=== PATIENT | female | born 1995 | race Hispanic/Latino ===

== ENCOUNTER 2018-04-21 20:29 | Emergency (ER) | payer OTHER ==
[~2018-04-21] VITALS: Ht 165.1 cm; Wt 80.3 kg
[2018-04-21] MEDS ORDERED: TRAMADOL HCL 50 MG TAB PO ONE (21:00)
--- NOTE | 2018-04-21 21:18 | Diagnostic Imaging Report ---
FOOT LEFT COMPLETE Comparison: None Clinical history: Injury of the foot after heavy object fell on it Findings: Nondisplaced fracture of the fifth proximal phalanx diaphysis. Nondisplaced intra-articular fracture of the fifth middle phalanx extending into the PIP joint. Fusion of the fifth middle and distal phalanx. Associated soft tissue swelling. Impression: Nondisplaced fifth phalangeal fractures. Signed by: Dr Crystal Schaefer MD on 04/21/2018 9:15 PM
== END 2018-04-21 22:50 | disposition home or self-care (01) ==
LOC: ER 20:29
DX: S92.525A Nondisplaced fracture of middle phalanx of left lesser toe(s), initial encounter for closed fracture (principal); S92.535A Nondisplaced fracture of distal phalanx of left lesser toe(s), initial encounter for closed fracture; W20.8XXA Other cause of strike by thrown, projected or falling object, initial encounter; Y93.B3 Activity, free weights; Y92.008 Other place in unspecified non-institutional (private) residence as the place of occurrence of the external cause; F41.9 Anxiety disorder, unspecified; F32.9 Major depressive disorder, single episode, unspecified
CPT/HCPCS: 99284